=== PATIENT | female | born 1970 | race Two or more races ===

== ENCOUNTER 2020-12-29 18:22 | Emergency (ER) | payer MEDICAID ==
[~2020-12-29] VITALS: Ht 165.1 cm; Wt 68.0 kg
[~2020-12-29 18:22] MED LIST: LORA-622
[2020-12-29 22:31] VITALS: BP 118/69
[2020-12-29] MEDS ORDERED: KETOROLAC TROMETH 60MG/2ML VIAL IM ONE (23:00)
== END 2020-12-30 02:30 | disposition home or self-care (01) ==
LOC: ER 18:22
DX: S43.491A Other sprain of right shoulder joint, initial encounter (principal); F41.9 Anxiety disorder, unspecified; F32.9 Major depressive disorder, single episode, unspecified; J45.909 Unspecified asthma, uncomplicated; Z88.5 Allergy status to narcotic agent; Z88.2 Allergy status to sulfonamides; Z88.0 Allergy status to penicillin; W22.8XXA Striking against or struck by other objects, initial encounter; Y93.89 Activity, other specified; Y92.89 Other specified places as the place of occurrence of the external cause; Y99.8 Other external cause status
CPT/HCPCS: 73030; 96372; 99283; J1885